=== PATIENT | male | born 1955 | race Caucasian/White ===

== ENCOUNTER 2018-10-31 06:47 | Day surgery (SDC) | payer BC ==
[~2018-10-31] VITALS: Ht 182.9 cm; Wt 90.7 kg
[~2018-10-31 06:47] MED LIST: ASPIRIN 8181 MG PO; ATORVASTATIN CA40 MG PO; AVODART0.5 MG PO; LISINOPRIL20 MG PO; MULTI VIT PO; TOPROL XL50 MG PO; VITAMIN B CO PO
[2018-10-31 09:16] VITALS: BP 96/60
== END 2018-10-31 08:48 | disposition home or self-care (01) | DRG 951 ==
LOC: ENDO 06:47
PROVIDERS: ATTEND Surgery
PROC: 0DJD8ZZ Inspection of Lower Intestinal Tract, Via Natural or Artificial Opening Endoscopic (ICD-10-PCS; principal; 2018-10-31)
DX: Z12.11 Encounter for screening for malignant neoplasm of colon (principal); I42.9 Cardiomyopathy, unspecified; I10 Essential (primary) hypertension

== ENCOUNTER 2022-12-30 07:49 | Emergency (ER) | payer MEDICARE, OTHER ==
[~2022-12-30] VITALS: Ht 182.9 cm; Wt 98.4 kg
[2022-12-30 07:55] VITALS: BP 144/83
[2022-12-30] MEDS ORDERED: CYCLOBENZAPRINE10 MG PO (08:49)
[2022-12-30 09:00] VITALS: BP 144/83
== END 2022-12-30 09:05 | disposition home or self-care (01) ==
LOC: ED 07:49
DX: M43.6 Torticollis (principal); I10 Essential (primary) hypertension

== ENCOUNTER 2024-05-13 07:45 | Day surgery (SDC) | payer MEDICARE, OTHER ==
[~2024-05-13] VITALS: Ht 182.9 cm; Wt 90.7 kg
[~2024-05-13 07:45] MED LIST changes: +C COMPLEX1000 MG PO; +CYCLOBENZAPRINE10 MG PO
[2024-05-13] MEDS ORDERED: FAMOTIDINE 10MG/ML 2ML SDV IV ONE (07:48)
[2024-05-13] MEDS ORDERED: LACTATED RINGER'S 1,000 ML IV ONE (07:48)
[2024-05-13 08:54] VITALS: BP 143/76
[2024-05-13] MEDS ORDERED: PROPOFOL 200 MG/20 ML VIAL IV ONE (13:15)
[2024-05-13] MEDS ORDERED: LIDOCAINE HCL 2% 2ML SDV IV ONE (13:15)
== END 2024-05-13 09:48 | disposition home or self-care (01) ==
LOC: ENDO 07:45 → ORM 11:45 → ENDO 18:00 → ORM 19:30
PROVIDERS: ATTEND Internal Medicine Gastroenterology
PROC: 0D738ZZ Dilation of Lower Esophagus, Via Natural or Artificial Opening Endoscopic (ICD-10-PCS; principal; 2024-05-13)
PROC: 0DB38ZX Excision of Lower Esophagus, Via Natural or Artificial Opening Endoscopic, Diagnostic (ICD-10-PCS; 2024-05-13)
PROC: 0DB78ZX Excision of Stomach, Pylorus, Via Natural or Artificial Opening Endoscopic, Diagnostic (ICD-10-PCS; 2024-05-13)
PROC: 0DB28ZX Excision of Middle Esophagus, Via Natural or Artificial Opening Endoscopic, Diagnostic (ICD-10-PCS; 2024-05-13)
DX: K22.2 Esophageal obstruction (principal); K20.0 Eosinophilic esophagitis; K29.70 Gastritis, unspecified, without bleeding; K44.9 Diaphragmatic hernia without obstruction or gangrene; I10 Essential (primary) hypertension; E78.5 Hyperlipidemia, unspecified; I42.8 Other cardiomyopathies